=== PATIENT | female | born 1975 | race Caucasian/White ===

== ENCOUNTER 2017-03-12 08:00 | Outpatient (CLI) | payer MEDICARE, MEDICAID | END 2017-03-12 23:59 | DX: Z11.3 Encounter for screening for infections with a predominantly sexual mode of transmission (principal); N89.8 Other specified noninflammatory disorders of vagina | CPT/HCPCS: 36415; 86780; 86803; 87491; 87591; G0475 ==

== ENCOUNTER 2018-04-29 14:29 | Emergency (ER) | payer MEDICARE, MEDICAID ==
[2018-04-29 14:37] VITALS: BP 136/94
--- NOTE | 2018-04-29 14:41 | ED Physician Documentation ---
PD HPI HEENT - Stated complaint Stated Complaint: TOOTH PAIN - Chief complaint Chief Complaint: General - History obtained from History obtained from: Patient - History of Present Illness Timing - onset: How many days ago (1) Timing - details: Still present Location: Tooth Associated symptoms: No: Fever, Facial swelling - Additional information Additional information: The patient is a 43-year-old female who presents with toothache involving right upper molar. It has been excruciating this morning. She has had similar symptoms intermittently for years. She denies fever, headache, sore throat, or earache. Review of Systems Constitutional: denies: Fever Eyes: denies: Irritation Ears: denies: Ear pain Nose: denies: Congestion Throat: reports: Dental pain / toothache. 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 - Present Medications Home Medications: Ambulatory Orders Medication Instructions Recorded Confirmed HYDROcod/ACETAM 5/325 [[place] 5/325] 1 - 2 ea PO Q6H PRN #15 tablet 04/29/18 Penicillin V Potassium 500 mg PO QID #40 tablet 04/29/18 - Allergies Allergies/Adverse Reactions: Allergies Allergy/AdvReac Type Severity Reaction Status Date / Time tricycline Allergy Rash Uncoded 04/12/16 20:23 - Social History Does the pt smoke?: Yes Smoking Status: Current every day smoker Does the pt drink ETOH?: No Does the pt have substance abuse?: No - Immunizations Immunizations are current?: Yes - POLST Patient has POLST: No PD ED PE NORMAL - Vitals Vital signs reviewed: Yes (Borderline hypertension initially.) - General General: Alert and oriented X 3, Well developed/nourished - HEENT HEENT: Atraumatic, EOMI, Ears normal, Pharynx benign, Other (There is a markedly decayed right upper molar, with associated tenderness to palpation. There is no gingival erythema, and no facial swelling.) - Neck Neck: Supple, no meningeal sign, Other (Mild right anterior cervical adenopathy. ) - Cardiac Cardiac: RRR - Respiratory Respiratory: No respiratory distress, Clear bilaterally - Abdomen Abdomen: Soft, Non tender - Derm Derm: No rash - Neuro Neuro: Alert and oriented X 3, Normal speech Results - Vitals Vitals: Vital Signs - 24 hr 04/29/18 14:31 Temperature 37.3 C Heart Rate 86 Respiratory 18 Rate Blood Pressure 136/94 H O2 Saturation 100 Oxygen O2 Source Room air PD MEDICAL DECISION MAKING - ED course Complexity details: reviewed old records, considered differential, d/w patient ED course: The patient's presentation is consistent with dental abscess. There is no clinical evidence to suggest peritonsillar abscess. She is being discharged with prescription for penicillin and for Vicodin, 15 tablets. I discussed with her the importance of following up with a dentist. I also discussed potentially worrisome signs or symptoms that should prompt reevaluation in the emergency department. - Sepsis Event Vital Signs: Vital Signs - 24 hr 04/29/18 14:31 Temperature 37.3 C Heart Rate 86 Respiratory 18 Rate Blood Pressure 136/94 H O2 Saturation 100 Oxygen O2 Source Room air Departure - Departure Disposition: 01 Home, Self Care Clinical Impression: Dental abscess Condition: Stable Instructions: ED Abscess Dental Prescriptions: HYDROcod/ACETAM 5/325 [[place] 5/325] 1 - 2 ea PO Q6H PRN #15 tablet PRN Reason: Pain Penicillin V Potassium 500 mg PO QID #40 tablet Comments: Take penicillin 4 times daily as prescribed. You can use Vicodin as prescribed if needed for pain. Follow up with a dentist as soon as possible. Return to the emergency department if you develop increasing facial swelling, difficulty swallowing, or otherwise worsening symptoms Discharge Date/Time: 04/29/18 14:44
== END 2018-04-29 14:44 | disposition home or self-care (01) ==
LOC: ED 14:29
DX: K04.7 Periapical abscess without sinus (principal); K21.9 Gastro-esophageal reflux disease without esophagitis; F17.200 Nicotine dependence, unspecified, uncomplicated
CPT/HCPCS: 99283

== ENCOUNTER 2021-11-19 08:00 | Outpatient (CLI) | payer MEDICARE, MEDICAID | END 2021-11-19 23:59 | LOC: LAB.N 08:00 | PROVIDERS: ATTEND Nurse Practitioner | DX: U07.1 COVID-19 (principal) | CPT/HCPCS: 87275; 87276; U0004 ==

== ENCOUNTER 2022-03-13 08:00 | Outpatient (CLI) | payer MEDICARE, MEDICAID ==
[2022-03-13 19:06] LABS: BASOPHILS % (AUTO) 0.5 %; EOSINOPHILS # (AUTO) 0.1 10^3/uL (0.0-0.7); EOSINOPHILS % (AUTO) 1.8 %; HCT - HEMATOCRIT 37.1 % (37.0-47.0); HGB - HEMOGLOBIN 11.8 g/dL (12.0-16.0); LYMPHOCYTES # (AUTO) 1.7 10^3/uL (1.5-3.5); LYMPHOCYTES % (AUTO) 27.1 %; MEAN CORPUSCULAR HEMOGLOBIN 22.7 pg (27.0-31.0); MEAN CORPUSCULAR HGB CONC 31.8 g/dL (32.0-36.0); MEAN CORPUSCULAR VOLUME 71.3 fL (81.0-99.0); MEAN PLATELET VOLUME 10.9 fL (7.9-10.8); MONOCYTES # (AUTO) 0.4 10^3/uL (0.0-1.0); MONOCYTES % (AUTO) 7.1 %; NEUTROPHILS % (AUTO) 63.3 %; PLT - PLATELET COUNT 295 10^3/uL (130-450); RED CELL DISTRIBUTION WIDTH 18.6 % (12.0-15.0); WHITE BLOOD COUNT 6.2 x10^3/uL (4.8-10.8)
[2022-03-13 19:25] LABS: ALBUMIN 4.3 g/dL (3.2-5.5); ALBUMIN/GLOBULIN RATIO 1.6 (1.0-2.2); BILIRUBIN,TOTAL 0.6 mg/dL (0.2-1.0); CALCIUM 9.1 mg/dL (8.5-10.3); CREATININE 0.7 mg/dL (0.4-1.0); POTASSIUM 4.2 mmol/L (3.5-5.0)
[2022-03-13 19:36] LABS: THYROID STIMULATING HORMONE 2.94 uIU/mL (0.34-5.60)
[2022-03-13 20:04] LABS: FOLLICLE STIMULATING HORMONE 7.14 mIU/mL
== END 2022-03-13 08:01 | disposition home or self-care (01) ==
LOC: LAB.N 08:00
PROVIDERS: ATTEND Family Medicine
DX: D50.8 Other iron deficiency anemias (principal); R53.83 Other fatigue; N91.2 Amenorrhea, unspecified; R56.9 Unspecified convulsions
CPT/HCPCS: 36415; 80053; 83001; 84443; 85025

== ENCOUNTER 2022-05-11 09:32 | Emergency (ER) | payer MEDICARE, MEDICAID ==
[2022-05-11] MEDS ORDERED: LIDOCAINE 2% 10 ML MDV SUBQ ONE (09:53)
--- NOTE | 2022-05-11 10:22 | ED Physician Documentation ---
History of Present Illness - Stated complaint Stated Complaint: LAC FINGERS - Chief complaint Chief Complaint: Laceration - History obtained from History obtained from: Patient - History of Present Illness Timing: Today Pain level max: 6 Pain level now: 5 - Additonal information Additional information: Patient is a 47-year-old female who presents to the emergency department stating that a fan struck her in the left third digit today at home. She complains of pain to the distal phalanx of the left third digit laceration. 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 - Present Medications Home Medications: Ambulatory Orders Medication Instructions Recorded Confirmed HYDROcod/ACETAM 5/325 [[place] 5/325] 1 - 2 ea PO Q6H PRN #15 tablet 04/29/18 Penicillin V Potassium 500 mg PO QID #40 tablet 04/29/18 Oxycodone HCl/Acetaminophen 1 - 2 each PO Q6H PRN #14 tablet 05/11/22 [Percocet 5-325 mg Tablet] cephALEXin [Keflex] 500 mg PO Q6H #28 cap 05/11/22 - Allergies Allergies/Adverse Reactions: Allergies Allergy/AdvReac Type Severity Reaction Status Date / Time tricycline Allergy Rash Uncoded 05/11/22 09:42 - Social History Does the pt smoke?: Yes Smoking Status: Current every day smoker Does the pt drink ETOH?: No Does the pt have substance abuse?: No - Immunizations Immunizations are current?: Yes - POLST Patient has POLST: No PD ED PE NORMAL - Vitals Vital signs reviewed: Yes - General General: Alert and oriented X 3, Other (crying, writhing) - HEENT HEENT: Atraumatic, Moist mucous membranes - Neck Neck: Supple, no meningeal sign - Cardiac Cardiac: RRR - Respiratory Respiratory: No respiratory distress, Clear bilaterally - Abdomen Abdomen: Soft, Non tender, Non distended - Derm Derm: Warm and dry - Neuro Neuro: Alert and oriented X 3 - Psych Psych: Normal mood, Normal affect PD ED PE EXPANDED - Extremities PALLAVI UE/Hands Visual: 1 - laceration (Partial fingernail avulsion, small laceration. Neurovascularly intact. No bony exposure.) Results - Vitals Vitals: Vital Signs - 24 hr 05/11/22 05/11/22 09:40 11:39 Temperature 37.1 C Heart Rate 107 H 90 Respiratory 20 16 Rate Blood Pressure 152/106 H 136/87 H O2 Saturation 96 97 Oxygen O2 Source Room air - Rads (name of study) Left hand x-ray Radiology: Final report received, EMP read contemporaneously, See rad report (Left third digit distal tuft fracture) PD MEDICAL DECISION MAKING - ED course Complexity details: reviewed results, re-evaluated patient, considered differential, d/w patient ED course: Patient with a partial fingertip/fingernail avulsion. There is no laceration to repair. Digital block was performed with lidocaine with good relief. The patient is having significant pain. She states that she has a very low pain threshold. The wound was cleansed, bandaged and splinted in the position of comfort. We will place on antibiotics for home given the tuft fracture. We will have her follow-up with her doctor for further care and/or orthopedics. Will allow the wound to heal by secondary intention. Neurovascularly intact patient counseled regarding signs and symptoms for which I believe and urgent re-evaluation would be necessary. Patient with good understanding of and agreement to plan and is comfortable going home at this time This document was made in part using voice recognition software. While efforts are made to proofread this document, sound alike and grammatical errors may occur. Departure - Departure Disposition: 01 Home, Self Care Clinical Impression: Open fracture of tuft of distal phalanx of finger Fingernail avulsion, partial Qualifiers: Encounter type: initial encounter Qualified Code(s): S61.309A - Unspecified open wound of unspecified finger with damage to nail, initial encounter Finger laceration Qualifiers: Encounter type: initial encounter Finger: middle finger Damage to nail status: with damage Foreign body presence: without foreign body Laterality: left Qualified Code(s): S61.313A - Laceration without foreign body of left middle finger with damage to nail, initial encounter Condition: Good Instructions: ED Laceration Amputation Finger Tip Open Tx, ED Fx Finger Open Follow-Up: [facility] [Provider Group] - Within 1 week Herlinda Todd ARNP [Primary Care Provider] - Within 1 week Prescriptions: cephALEXin [Keflex] 500 mg PO Q6H #28 cap Oxycodone HCl/Acetaminophen [Percocet 5-325 mg Tablet] 1 - 2 each PO Q6H PRN #14 tablet PRN Reason: pain Comments: Your medications were sent to [facility] in [place]. Please follow-up with your doctor for further care and wound check within 1 week. You can also follow-up with orthopedics. The numbers are listed on this paper. Keep the wound clean. Wear the splint for the next several days to help protect the wound. Take all antibiotics until gone. I am prescribing a short course of narcotic pain medication for you. These are potentially dangerous and addictive medications that should be used carefully. These medications may constipate you. Take an clfd-zqs-[id number] stool softener (docusate) twice daily with plenty of water while taking these medications. If you go 24 hours without a bowel movement, take alda-prj-enywrkt miralax, per package instructions. Do not drink or drive while taking these medications. If you received narcotic or sedating medications while in the emergency department, do not drive for 24 hours. Store this medication in a safe, secure place and out of reach of children. It is a violation of federal law to give or sell this medication to another person or to use in a manner other than prescribed. The ED will not refill narcotic prescriptions, including prescriptions lost or s tolen. To dispose of unwanted medications: 1. [facility] at [address] in [place] has a medication drop box. They accept prescription medications (in pi ll form) Wednesday through Wednesday 9:00 a.m. to 5:00 p.m. 2. The [facility] [employer] accepts prescription medications (in pill form only) for disposal year round. Call for more information. 3. Contact the [facility] for the next [facility] sponsored prescription zach g collection event. , [phone], or [phone]; Discharge Date/Time: 05/11/22 11:41
[2022-05-11] MEDS ORDERED: HYDROmorphone 1 MG/ML CARPUJECT IM STA (10:32)
[2022-05-11] MEDS ORDERED: BACITRACIN ZINC OINT 1 PACKET TOP STA (11:23)
[2022-05-11] MEDS ORDERED: TETANUS/DIPHTHERIA/PERTUSSIS 0.5 ML SYRINGE IM ONE (11:25)
[2022-05-11] MEDS ORDERED: cephALEXin 250 MG CAPSULE PO STA (11:25)
--- NOTE | 2022-05-11 11:29 | XRAY Report ---
PROCEDURE: Hand 3 View LT INDICATIONS: L hand vs fan TECHNIQUE: 3 views of the hand(s) acquired. COMPARISON: None FINDINGS: Bones: Small, comminuted avulsion fracture involving the tuft of the third distal phalange. Soft tissues: No suspicious soft tissue calcifications. Laceration noted in the tip of the third fin bethany. IMPRESSION: There are distal phalange tuft fracture. Reviewed by: Rachel Caceres MD, PhD on 05/11/2022 11:27 AM PDT Approved by: Rachel Caceres MD, PhD on 05/11/2022 11:27 AM PDT Station ID: [id number]
[2022-05-11 11:40] VITALS: BP 136/87
== END 2022-05-11 11:41 | disposition home or self-care (01) ==
LOC: ED 09:32
DX: S62.633A Displaced fracture of distal phalanx of left middle finger, initial encounter for closed fracture (principal); W26.8XXA Contact with other sharp object(s), not elsewhere classified, initial encounter; Y92.009 Unspecified place in unspecified non-institutional (private) residence as the place of occurrence of the external cause; F17.200 Nicotine dependence, unspecified, uncomplicated; Z23 Encounter for immunization; Z71.85 Encounter for immunization safety counseling
CPT/HCPCS: 64450; 73130; 90471; 90715; 96372; 99283; A9270; J1170

== ENCOUNTER 2022-05-25 08:00 | Outpatient (CLI) | payer MEDICARE, MEDICAID ==
--- NOTE | 2022-05-25 16:57 | XRAY Report ---
PROCEDURE: Hand 3 View LT INDICATIONS: HAND PAIN TECHNIQUE: 3 views of the hand(s) acquired. COMPARISON: X-ray of the left hand, 3 views, 05/11/2022. FINDINGS: Bones: There are small comminuted fractures of the tuft of the third distal phalanx with displacemen t. No significant change in alignment. No dislocations. No suspicious bony lesions. Soft tissues: No suspicious soft tissue calcifications. IMPRESSION: Third distal phalangeal tuft fracture. Reviewed by: Jacqui Scales MD on 05/25/2022 4:56 PM PDT Approved by: Jacqui Scales MD on 05/25/2022 4:56 PM PDT Station ID: [id number]
== END 2022-05-25 23:59 | disposition home or self-care (01) ==
LOC: DI.WOS 08:00
PROVIDERS: ATTEND Physician Assistant
DX: S62.633A Displaced fracture of distal phalanx of left middle finger, initial encounter for closed fracture (principal)

== ENCOUNTER 2022-10-09 21:19 | Outpatient (CLI) | payer MEDICARE, MEDICAID | END 2022-10-09 21:20 | disposition EMS.NT | LOC: EMS 21:19 | DX: R11.2 Nausea with vomiting, unspecified (principal) ==

== ENCOUNTER 2024-01-05 16:39 | Emergency (ER) | payer MEDICARE, MEDICAID ==
[2024-01-05 17:39] LABS: BASOPHILS % (AUTO) 0.7 %; EOSINOPHILS # (AUTO) 0.1 10^3/uL (0.0-0.7); EOSINOPHILS % (AUTO) 2.1 %; HGB - HEMOGLOBIN 12.8 g/dL (12.0-16.0); LYMPHOCYTES % (AUTO) 33.1 %; MEAN CORPUSCULAR HEMOGLOBIN 22.6 pg (27.0-31.0); MEAN CORPUSCULAR VOLUME 70.7 fL (81.0-99.0); MEAN PLATELET VOLUME 9.6 fL (7.9-10.8); MONOCYTES # (AUTO) 0.5 10^3/uL (0.0-1.0); MONOCYTES % (AUTO) 8.5 %; NEUTROPHILS # (AUTO) 3.4 10^3/uL (1.5-6.6); NEUTROPHILS % (AUTO) 55.4 %; PLT - PLATELET COUNT 308 10^3/uL (130-450); RED BLOOD COUNT 5.66 10^6/uL (4.20-5.40); WHITE BLOOD COUNT 6.1 x10^3/uL (4.8-10.8)
--- NOTE | 2024-01-05 17:44 | XRAY Report ---
PROCEDURE: Chest 1V INDICATIONS: Chest pain TECHNIQUE: One view of the chest was acquired. COMPARISON: None. FINDINGS: Surgical changes and devices: None. Lungs and pleura: No pleural effusions or pneumothorax. Lungs are clear. Mediastinum: Mediastinal contours appear normal. Heart size is normal. Bones and chest wall: No suspicious bony lesions. Overlying soft tissues appear unremarkable. IMPRESSION: No acute cardiopulmonary process. Reviewed by: Fidel Keita MD on 01/05/2024 5:43 PM PST Approved by: Fidel Keita MD on 01/05/2024 5:43 PM PST Station ID: [id number]
[2024-01-05 17:53] LABS: ALBUMIN 4.5 g/dL (3.2-5.5); ALBUMIN/GLOBULIN RATIO 1.7 (1.0-2.2); BILIRUBIN,TOTAL 0.4 mg/dL (0.2-1.0); CALCIUM 10.1 mg/dL (8.5-10.3); CREATININE 0.8 mg/dL (0.6-1.3); POTASSIUM 3.7 mmol/L (3.5-4.5); TOTAL PROTEIN 7.2 g/dL (6.4-8.9)
[2024-01-05 18:26] LABS: TROPONIN I HIGH SENSITIVITY 2.3 ng/L (2.3-14.8)
--- NOTE | 2024-01-05 20:06 | ED Physician Documentation ---
History of Present Illness - Stated complaint Stated Complaint: COUGH/HEART PALP - Chief complaint Chief Complaint: Cardiac - History obtained from History obtained from: Patient - History of Present Illness Timing: Today Pain level max: 0 Pain level now: 0 - Additonal information Additional information: Patient is a 48-year-old female who presents to the emergency department with intermittent palpitations for several weeks. She states that when she feels the palpitation she feels a tightness in her chest and feels like she needs to cough. Does not have any pain currently. Last for a few seconds at a time. Has never had similar symptoms previously. No cardiac history. She does not smoke or drink alcohol. She states she does drink approximately 3 large cups of coffee per day. No history of thyroid issues. No new medications or changes to her medications. No recent travel. No calf swelling or tenderness. Nothing seems to make it better or worse. 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 - Present Medications Home Medications: Ambulatory Orders Medication Instructions Recorded Confirmed Metoprolol Succinate [Toprol Xl] 25 mg PO DAILY #30 tablet 01/05/24 - Allergies Allergies/Adverse Reactions: Allergies Allergy/AdvReac Type Severity Reaction Status Date / Time tricycline Allergy Rash Uncoded 01/05/24 17:13 - Social History Does the pt smoke?: Yes Smoking Status: Current every day smoker Does the pt drink ETOH?: No Does the pt have substance abuse?: No - Immunizations Immunizations are current?: Yes - POLST Patient has POLST: No PD ED PE NORMAL - Vitals Vital signs reviewed: Yes - General General: Alert and oriented X 3, No acute distress - HEENT HEENT: Moist mucous membranes - Neck Neck: Supple, no meningeal sign - Cardiac Cardiac: RRR, Strong equal pulses - Respiratory Respiratory: No respiratory distress, Clear bilaterally - Abdomen Abdomen: Soft, Non tender, Non distended - Derm Derm: Warm and dry - Neuro Neuro: Alert and oriented X 3 - Psych Psych: Normal mood, Normal affect Results - Vitals Vitals: Vital Signs - 24 hr 01/05/24 01/05/24 17:06 20:30 Temperature 36.5 C Heart Rate 118 H 68 Respiratory 16 18 Rate Blood Pressure 131/76 H 117/88 H O2 Saturation 100 96 Oxygen O2 Source Room air - EKG (time done) 1712 EKG releavant findings:: EKG personally interpreted by author of this note. Relevant findings are: Rate: Rate (enter#) (96) Rhythm: NSR, Other (PAC) [place]: Normal Intervals: Normal NC QRS: Normal Ischemia: T wave inversion (V6) - Labs Labs: Laboratory Tests 01/05/24 01/05/24 17:32 17:32 WBC 6.1 RBC 5.66 H Hgb 12.8 Hct 40.0 MCV 70.7 L MCH 22.6 L MCHC 32.0 RDW 19.0 H Plt Count 308 MPV 9.6 Neut # (Auto) 3.4 Lymph # (Auto) 2.0 [place] # (Auto) 0.5 Eos # (Auto) 0.1 Baso # (Auto) 0.0 Absolute Nucleated RBC 0.00 Nucleated RBC % 0.0 Sodium 142 Potassium 3.7 Chloride 104 Carbon Dioxide 32 Anion Gap 6.0 BUN 15 Creatinine 0.8 Estimated GFR (MDRD) 76 L Glucose 110 H Calcium 10.1 Total Bilirubin 0.4 AST 13 ALT 13 Alkaline Phosphatase 39 L Troponin I High Sens 2.3 Total Protein 7.2 Albumin 4.5 Globulin 2.7 Albumin/Globulin Ratio 1.7 Lipase 81 - Rads (name of study) cxr Relevant Findings:: Final report received, See rad report PD Medical Decision Making - ED course Complexity details: reviewed results, re-evaluated patient, considered differential, d/w patient, d/w family ED course: Patient with premature atrial contractions. These correspond to her symptoms when on telemetry. Likely that this is the cause of her symptoms. We will have her decrease stimulant use. Recommend that she follow-up with her doctor for further care, consider Holter monitoring or Zio patch. Patient is quite bothered by the PACs, therefore we will trial her on a low-dose metoprolol to see if this helps her symptoms in addition to decreasing the stimulants. No evidence of acute coronary syndrome, PE. No other arrhythmias on telemetry. Patient counseled regarding signs and symptoms for which I believe and urgent re-evaluation would be necessary. Patient with good understanding of and agreement to plan and is comfortable going home at this time This document was made in part using voice recognition software. While efforts are made to proofread this document, sound alike and grammatical errors may occur. Departure - Departure Disposition: Home, Self Care Clinical Impression: Premature atrial contraction, Palpitations Condition: Good Instructions: ED Palpitations Follow-Up: your,doctor in 1 week [Other] Prescriptions: Metoprolol Succinate [Toprol Xl] 25 mg PO DAILY #30 tablet Comments: Your prescription was sent to [facility] in [place]. Please follow-up with your doctor for further care. You have premature atrial contractions today, these are not dangerous but can be discomforting. Please avoid caffeine, alcohol, stress, energy drinks. Your doctor may want to prescribe a Zio patch or Holter monitor for you for further evaluation. Forms: PCP List Discharge Date/Time: 01/05/24 20:43
[2024-01-05] MEDS: METOPROLOL TARTRATE 50 MG TABLET PO STA (20:18)
[2024-01-05 20:40] VITALS: BP 117/88; O2SAT 96
== END 2024-01-05 20:43 | disposition home or self-care (01) ==
LOC: ED 16:39
DX: I49.1 Atrial premature depolarization (principal)
CPT/HCPCS: 36415; 71045; 80053; 83690; 84484; 85025; 93005; 99284; A9270